=== PATIENT | female | born 1990 | race African-American/Black ===

== ENCOUNTER 2018-06-20 20:33 | Emergency (ER) | payer OTHER ==
[2018-06-20] MEDS: IBUPROFEN 600 MG TAB PO (22:31)
== END 2018-06-20 23:03 | disposition home or self-care (01) ==
LOC: M ED 20:33
DX: R07.89 Other chest pain (principal)
CPT/HCPCS: 71046

== ENCOUNTER → 2018-08-10 | Outpatient (CLI) | payer OTHER | LOC: M RAD 13:38 | DX: N63.10 Unspecified lump in the right breast, unspecified quadrant (principal); N63.20 Unspecified lump in the left breast, unspecified quadrant | CPT/HCPCS: 77066 ==

== ENCOUNTER → 2018-08-28 | Outpatient (REF) | payer OTHER ==
[2018-08-28 18:25] LABS: HCG, SERUM QUANTITATIVE 117 MIU/ML
== END ==
LOC: M SFHCPLAZ 15:20
DX: Z32.00 Encounter for pregnancy test, result unknown (principal)